=== PATIENT | male | born 1955 | race Caucasian/White ===

== ENCOUNTER → 2017-10-14 | Outpatient (CLI) | payer MEDICAID | LOC: RAD 12:30 | PROVIDERS: ATTEND Internal Medicine Hematology & Oncology | DX: Z02.9 Encounter for administrative examinations, unspecified (principal) ==

== ENCOUNTER → 2017-10-17 | Outpatient (CLI) | payer MEDICAID | END | disposition home or self-care (01) | LOC: RAD 13:19 | PROVIDERS: ATTEND Internal Medicine Hematology & Oncology | DX: M48.54XA Collapsed vertebra, not elsewhere classified, thoracic region, initial encounter for fracture (principal); M48.56XA Collapsed vertebra, not elsewhere classified, lumbar region, initial encounter for fracture; M85.88 Other specified disorders of bone density and structure, other site; C90.01 Multiple myeloma in remission; C79.51 Secondary malignant neoplasm of bone; G89.3 Neoplasm related pain (acute) (chronic); Z85.72 Personal history of non-Hodgkin lymphomas | CPT/HCPCS: 72072; 72100 ==

== ENCOUNTER 2019-08-18 07:36 | Day surgery (SDC) | payer MEDICARE, MEDICAID ==
[~2019-08-18] VITALS: Ht 180.3 cm; Wt 76.0 kg
[2019-08-18 08:22] VITALS: BP 109/71
[2019-08-18 08:42] LABS: BASOPHILS # (AUTO) 0.11 x10^3/uL (0-0.1); BASOPHILS % (AUTO) 2 % (0-1); EOSINOPHILS # (AUTO) 0.42 x10^3/uL (0-0.4); EOSINOPHILS % (AUTO) 8 % (1-7); LYMPHOCYTES % (AUTO) 31 % (22-44); MD NO; MEAN CORPUSCULAR HEMOGLOBIN 31.9 pg (27.5-34.5); MEAN CORPUSCULAR HGB CONC 33.1 g/dL (33.2-36.2); MEAN CORPUSCULAR VOLUME 96.3 fL (81-97); MEAN PLATELET VOLUME 7.1 fL (7.4-10.4); MONOCYTES # (AUTO) 0.67 x10^3/uL (0.2-0.8); MONOCYTES % (AUTO) 12 % (2-9); NEUTROPHILS # (AUTO) 2.53 x10^3/uL (1.8-6.8); NEUTROPHILS % (AUTO) 47 % (42-75); PLATELET COUNT 234 x10^3/uL (130-400); RED BLOOD COUNT 5.01 x10^6/uL (4.38-5.82); RED CELL DISTRIBUTION WIDTH 14.3 % (9.4-14.8)
[2019-08-18] MEDS ORDERED: FLUMAZENIL 0.1 MG/1 ML, 5ML ONE (09:08)
[2019-08-18] MEDS ORDERED: FENTANYL PF 100 MCG/2ML ONE (09:08)
[2019-08-18] MEDS ORDERED: MIDAZOLAM 1 MG/ML, 5ML ONE (09:08)
[2019-08-18] MEDS ORDERED: NALOXONE 1 MG/ML, 2ML ONE (09:08)
[2019-09-22] MEDS ORDERED: FENT1PAT76 TP (09:26)
[2019-09-22] MEDS ORDERED: OXYC20TA2 PO (09:26)
[2019-09-22] MEDS ORDERED: LENA20CA PO (09:26)
[2019-09-22] MEDS ORDERED: DIAZ5TAB PO (09:26)
== END 2019-08-18 10:15 | disposition left against medical advice (07) ==
LOC: OUT 07:36
PROVIDERS: ATTEND Specialist
DX: C90.11 Plasma cell leukemia in remission (principal); Z53.29 Procedure and treatment not carried out because of patient's decision for other reasons; G62.9 Polyneuropathy, unspecified; F17.210 Nicotine dependence, cigarettes, uncomplicated; Z79.891 Long term (current) use of opiate analgesic; Z79.899 Other long term (current) drug therapy; Z94.84 Stem cells transplant status
CPT/HCPCS: 36415; 38222; 77012; 85025; 85097; 88237; 88264; 88280; 88305; 88311; 88313; 88341; 88342; 88360; 99156; 99157; J2250; J3010; J2310